=== PATIENT | male | born 1940 | race African-American/Black ===

== ENCOUNTER 2018-03-07 07:31 | Emergency (ER) | payer OTHER ==
[~2018-03-07] VITALS: Ht 172.7 cm; Wt 88.5 kg
[2018-03-07] MEDS ORDERED: OXYCODONE HCL 55 MG PO (07:50)
[2018-03-07] MEDS ORDERED: NORVASC5 M1 PO (08:10)
[2018-03-07] MEDS ORDERED: ASPIR 8181 MG PO (08:11)
[2018-03-07] MEDS ORDERED: COREG6.25 MG PO (08:12)
[2018-03-07] MEDS ORDERED: CARAFATE 1 GM TA1 G1 PO (08:12)
[2018-03-07] MEDS ORDERED: FEOSOL325 M1 PO (08:12)
[2018-03-07] MEDS ORDERED: LISINOPRIL20 MG PO (08:12)
[2018-03-07] MEDS ORDERED: PROTONIX40 M1 PO (08:13)
[2018-03-07] MEDS ORDERED: LASIX 20 MG TAB20 MG PO (08:13)
[2018-03-07] MEDS ORDERED: KLOR-CON 1010 MEQ PO (08:13)
[2018-03-07] MEDS ORDERED: ENDOCET 10-3251 EACH PO (08:14)
[2018-03-07] MEDS ORDERED: VIAGRA25 MG PO (08:15)
[2018-03-07] MEDS ORDERED: CIPRO500 MG PO (08:46)
[2018-03-07] MEDS ORDERED: NORCO 5-325 TA1 EACH PO (09:23)
[2018-03-07 10:00] VITALS: BP 136/64
[2018-03-08] MEDS ORDERED: NORCO 10-325 T1 EACH PO (13:03)
== END 2018-03-07 09:35 | disposition home or self-care (01) ==
LOC: ER 07:31
DX: M54.5 Low back pain (principal); I10 Essential (primary) hypertension; Z85.46 Personal history of malignant neoplasm of prostate; Z90.5 Acquired absence of kidney

== ENCOUNTER 2018-03-08 07:48 | Emergency (ER) | payer OTHER ==
[~2018-03-08] VITALS: Ht 172.7 cm; Wt 88.5 kg
[~2018-03-08 07:48] MED LIST: ASPIR 8181 MG PO; CARAFATE 1 GM TA1 G1 PO; CIPRO500 MG PO; COREG6.25 MG PO; ENDOCET 10-3251 EACH PO; FEOSOL325 M1 PO; KLOR-CON 1010 MEQ PO; LASIX 20 MG TAB20 MG PO; LISINOPRIL20 MG PO; NORCO 5-325 TA1 EACH PO; NORVASC5 M1 PO; OXYCODONE HCL 55 MG PO; PROTONIX40 M1 PO; VIAGRA25 MG PO
[2018-03-08 09:20] LABS: BASOPHILS 0.8 % (0.0-2.0); EOSINOPHILS 0.8 % (0.0-3.0); HEMATOCRIT 48.9 % (42.0-52.0); HEMOGLOBIN 16.8 gm/dL (14.0-18.0); LYMPHOCYTES 19.1 % (24.0-44.0); MCHC 34.3 g/dL (28.0-37.0); MCV 96.3 fL (80.0-100.0); MONOCYTES 7.8 % (1.0-8.0); PLATELET COUNT 171 thou/uL (150-400); POLYS 71.5 % (36.0-66.0); RBC 5.08 mil/uL (4.50-6.00); RDW 14.8 % (10.5-14.5); WBC 5.5 thou/uL (4.0-11.0)
[2018-03-08 09:28] LABS: CALCIUM 9.1 mg/dL (8.5-10.1); CREATININE 1.5 mg/dL (0.7-1.3); POTASSIUM 4.1 mmol/L (3.5-5.1)
[2018-03-08 09:33] LABS: ALBUMIN 3.4 g/dL (3.4-5.0); TOTAL BILIRUBIN 0.7 mg/dL (<0.1-1.0); TOTAL PROTEIN 7.6 g/dL (6.4-8.2)
[2018-03-08] MEDS ORDERED: NORCO 10-325 T1 EACH PO (13:03)
[2018-03-08 13:31] VITALS: BP 162/89
== END 2018-03-08 13:31 | disposition home or self-care (01) ==
LOC: ER 07:48
PROVIDERS: Physician Assistant
DX: M48.061 Spinal stenosis, lumbar region without neurogenic claudication (principal); M51.26 Other intervertebral disc displacement, lumbar region; N18.9 Chronic kidney disease, unspecified; R32 Unspecified urinary incontinence

== ENCOUNTER → 2019-08-09 | Outpatient (CLI) | payer OTHER ==
[~2019-08-09] VITALS: Ht 175.3 cm; Wt 91.6 kg
[~2019-08-09] MED LIST changes: +CARVEDILOL25 MG PO; -COREG6.25 MG PO; +NORCO 10-325 T1 EACH PO; +XARELTO20 MG PO
[2019-08-09 08:01] VITALS: BP 127/81
== END | disposition home or self-care (01) ==
LOC: CATH 08-07 09:27
DX: I48.91 Unspecified atrial fibrillation (principal); Z53.8 Procedure and treatment not carried out for other reasons; I48.92 Unspecified atrial flutter; I10 Essential (primary) hypertension; D64.9 Anemia, unspecified; F03.90 Unspecified dementia, unspecified severity, without behavioral disturbance, psychotic disturbance, mood disturbance, and anxiety; G89.29 Other chronic pain; M54.9 Dorsalgia, unspecified; Z98.890 Other specified postprocedural states; Z79.01 Long term (current) use of anticoagulants; Z79.899 Other long term (current) drug therapy; Z85.46 Personal history of malignant neoplasm of prostate